=== PATIENT | female | born 1990 | race Caucasian/White ===

== ENCOUNTER 2019-07-10 22:59 | Emergency (ER) | payer MEDICARE, MEDICAID ==
[~2019-07-10] VITALS: Ht 170.2 cm; Wt 108.9 kg
[~2019-07-10 22:59] MED LIST: ACET-868 PO; BISM525O70 PO; DIVA500T2 PO; RISP3TAB5 PO; VENL75CA56 PO
--- NOTE | 2019-07-10 23:09 | NUR ---
CALLED PT TO BE TRIAGED, NO ANSWER
--- NOTE | 2019-07-10 23:18 | NUR ---
"BIBSELF C/O CHEST PAIN. -SOB, -N/V/D, -DIZZINESS PT ALSO C/O SI, -PLAN. DENIES HI" PT TO BED 12, PT ON MONITOR, VSS, NAD NOTED, S/I PRECAUTIONS FOR SAFETY, SITTER AT BEDSIDE, PENDING MD RIVERA
[2019-07-10] MEDS ORDERED: ASPIRIN 81 MG TAB.CHEW ONE (23:27)
[2019-07-10] MEDS ORDERED: ASPIRIN 81 MG TAB.CHEW PO ONE (23:30)
--- NOTE | 2019-07-10 23:36 | NUR ---
PT UNABLE TO GIVE URINE SAMPLE AT THIS TIME
[2019-07-10 23:41] LABS: BASOPHILS # (AUTO) 0.1 /CMM (0.0-0.2); BASOPHILS % (AUTO) 0.6 % (0.0-2.0); EOSINOPHILS % (AUTO) 0.2 % (0.0-6.0); HEMATOCRIT 41 % (33-45); HEMOGLOBIN 13.6 g/dL (11.5-14.8); LYMPHOCYTES # (AUTO) 1.6 /CMM (0.8-4.8); LYMPHOCYTES % (AUTO) 12.2 % (20.0-44.0); MEAN CORPUSCULAR HGB CONC 33 g/dl (31.0-36.0); MEAN CORPUSCULAR VOLUME 90 fL (82-100); MONOCYTES % (AUTO) 7.5 % (2.0-12.0); NEUTROPHILS # (AUTO) 10.5 /CMM (1.8-8.9); NEUTROPHILS % (AUTO) 79.5 % (43.0-81.0); PLATELET COUNT (AUTO) 292 /CMM (150-450); RED BLOOD CELL COUNT(AUTO) 4.53 MIL/uL (4.0-5.2); WHITE BLOOD COUNT (AUTO) 13.3 K/uL (4.3-11.0)
[2019-07-10 23:53] LABS: CALCIUM, SERUM 9.7 mg/dL (8.5-10.1); CARBON DIOXIDE 27 mmol/L (21-32); CHLORIDE 100 mmol/L (98-107); CREATININE 1.1 mg/dL (0.6-1.3); GLUCOSE 116 mg/dL (74-106); POTASSIUM 3.9 mmol/L (3.5-5.1); SODIUM SERUM 137 mmol/L (136-145); UREA NITROGEN, BLOOD 12 mg/dL (7-18)
[2019-07-10 23:54] LABS: ACETAMINOPHEN 0 ug/ml (10-30); ALCOHOL, BLOOD < 3 mg/dL (0-0); SALICYLATE < 0.2 mg/dL (2.8-20.0)
[2019-07-11 00:04] LABS: ALANINE AMINOTRANSFERASE 49 U/L (12-78); ALBUMIN 3.8 g/dL (3.4-5.0); ALKALINE PHOSPHATASE 81 U/L (46-116); ASPARTATE AMINOTRANSFERASE 39 U/L (15-37); B-TYPE NATRIURETIC PEPTIDE 142 PG/ML (0-125); BILIRUBIN,DIRECT 0.3 mg/dL (0.0-0.2); BILIRUBIN,TOTAL 1.2 mg/dL (0.2-1.0); TOTAL PROTEIN, SERUM 8.1 g/dL (6.4-8.2)
[2019-07-11 00:07] LABS: THYROID STIMULATING HORMONE 3.965 uIU/mL (0.358-3.74)
[2019-07-11] MEDS ORDERED: IV NS 0.9% 1,000 ML BAG IV ONE ×2 (00:30→03:00)
--- NOTE | 2019-07-11 02:50 | NUR ---
END TIME FOR NS 1 LITER: 0350 LAC 20G
[2019-07-11] MEDS ORDERED: DIVALPROEX SODIUM 500 MG TABLET.DR PO ONE ×2 (04:00→04:01)
--- NOTE | 2019-07-11 08:15 | NUR ---
Social service consult requested by Dr. Hoover for suicidal ideations. Pt. is a 29 year old female complaining of suicidal ideations with no plan. SOMMER met with the pt. bedside. Pt. is alert and oriented x 3. Pt. states she resides with her mother and doesn't get along with her at times. Pt. says she is suicidal but has no plan. Pt. has a history of Bipolar Schizoaffective DO. Pt. sees a in [place] for the past three years. Pt saw the psychiatrist this week. Patient has been in partial at [facility] and [facility] but does not remember the dates. Pt. has a history of "many" hospitalizations and suicide attempts. Pt. unable to remember her last psychiatric hospitalization but does remember it was at [facility]. Patient states she is compliant with her medications. SOMMER contacted pt's mother Jitendra, who informed SW that pt. ran away from home after getting into an argument with her and intentionally trying to run into traffic. SOMMER contacted plastic surgery manager Tarun and updated him aforementioned information. Tarun informed SOMMER he will come to [facility] to evaluate the pt. and place on a 4160 hold if deemed appropriate.
--- NOTE | 2019-07-11 08:16 | NUR ---
SPOKED TO ART BUSINESS BANKING RELATIONSHIP MANAGER STATED ANNETTE NOVOA SHOULD EVAL THE PT FIRST.
--- NOTE | 2019-07-11 08:21 | NUR ---
PROVIDED W/ FOOD TRAY.
--- NOTE | 2019-07-11 09:49 | NUR ---
ART TACK PULLER MACHINE AT BEDSIDE FOR EVAL.
--- NOTE | 2019-07-11 10:00 | NUR ---
ART HYDROELECTRIC POWERPLANT SUPERVISOR AT BEDSIDE FOR EVAL.
--- NOTE | 2019-07-11 10:32 | NUR ---
PT IS ACCEPTED IN [facility] BY DR. COLEMAN.
[2019-07-11 11:33] VITALS: BP 111/71
--- NOTE | 2019-07-11 11:40 | NUR ---
REPORT GIVEN TO MARGARETTE AGARWAL AT [facility]. AWAITING TRANSPORT AMBULANCE.
--- NOTE | 2019-07-11 11:40 | NUR ---
CALL FOR TRANSPORT ([facility]), ETA 1400
== END 2019-07-11 14:41 ==
LOC: ER 22:59
DX: R45.851 Suicidal ideations (principal); R07.89 Other chest pain; I10 Essential (primary) hypertension; M19.90 Unspecified osteoarthritis, unspecified site; Z79.899 Other long term (current) drug therapy
CPT/HCPCS: 36415 ×2; 71045; 80048; 80076; 80164; 80305; 80307; 80329; 83880; 84443; 84484 ×2; 84703; 85025; 85378; 93005; 99285; G0480; J7030

== ENCOUNTER 2019-10-07 03:36 | Emergency (ER) | payer MEDICARE, MEDICAID ==
[~2019-10-07] VITALS: Ht 154.9 cm; Wt 117.9 kg
--- NOTE | 2019-10-07 03:48 | NUR ---
Note undone in EDM - 10/07/19 at 0352 by DONALD BIBRA AND [employer] FROM HOME TO ER BED 12. AAOX4. NO RESP DISTRESS NOTED. AMBULATORY. BROUGHT IN FGOR SUICIDAL IDEATION. PT REPORTS THAT SHE WANT TO KILL HERSELF BY CUTTING HERSELF WITH A KNIFE. PER EMS REPORT, PT TRIED TO STRANGLE HERSELF WITH A TOWEL WHILE IN THE AMBULACE. PT DENIES ANY MEDICAL COMPLAINT. PT IS PLACED IN GOWN AND BELONGINGS FROM PT. MD WAS AT BEDSIDE FOR EVAL. ORDERS RECEIVED, NOTED AND CARRIED OUT.1:1 SITTER AT BEDSIDE.
--- NOTE | 2019-10-07 03:48 | NUR ---
BIB AND [employer] FROM HOME TO ER BED 12. AAOX4. NO RESP DISTRESS NOTED. AMBULATORY. BROUGHT IN FGOR SUICIDAL IDEATION. PT REPORTS THAT SHE WANT TO KILL HERSELF BY CUTTING HERSELF WITH A KNIFE. PER EMS REPORT, PT TRIED TO STRANGLE HERSELF WITH A TOWEL WHILE IN THE AMBULACE. PT DENIES ANY MEDICAL COMPLAINT. PT IS PLACED IN GOWN AND BELONGINGS FROM PT. PT DENIES HI. DENIES HALLUCINATIONS. MD WAS AT BEDSIDE FOR EVAL. ORDERS RECEIVED, NOTED AND CARRIED OUT.1:1 SITTER AT BEDSIDE.
[2019-10-07 04:00] LABS: BASOPHILS % (AUTO) 0.3 % (0.0-2.0); EOSINOPHILS % (AUTO) 1.1 % (0.0-6.0); HEMATOCRIT 40 % (33-45); HEMOGLOBIN 13.3 g/dL (11.5-14.8); LYMPHOCYTES # (AUTO) 2.5 /CMM (0.8-4.8); LYMPHOCYTES % (AUTO) 18.7 % (20.0-44.0); MEAN CORPUSCULAR HGB CONC 33 g/dl (31.0-36.0); MEAN CORPUSCULAR VOLUME 89 fL (82-100); MONOCYTES # (AUTO) 0.6 /CMM (0.1-1.30); MONOCYTES % (AUTO) 4.6 % (2.0-12.0); NEUTROPHILS # (AUTO) 9.9 /CMM (1.8-8.9); NEUTROPHILS % (AUTO) 75.3 % (43.0-81.0); PLATELET COUNT (AUTO) 318 /CMM (150-450); RED BLOOD CELL COUNT(AUTO) 4.52 MIL/uL (4.0-5.2); WHITE BLOOD COUNT (AUTO) 13.2 K/uL (4.3-11.0)
[2019-10-07 04:05] LABS: APPEARANCE,URINE Slightly Cloudy (CLEAR); BILIRUBIN,URINE Negative (NEGATIVE); BLOOD, URINE Small Ery/uL (NEGATIVE); COLOR,URINE Yellow (YELLOW); KETONES,URINE Negative (NEGATIVE); LEUKOCYTE ESTERASE ,URINE Trace (NEGATIVE); NITRITE, URINE Negative (NEGATIVE); PROTEIN,URINE Negative (NEGATIVE); UGLUCOSE Negative (NEGATIVE)
--- NOTE | 2019-10-07 04:12 | NUR ---
PT CLOTHINGS ARE PLACED IN THE LOCKER LOCATED IN THE UTILITY. PT WAS VISUALLY INSPECTED FOR CONTRABAND
[2019-10-07 04:13] LABS: CALCIUM, SERUM 9.8 mg/dL (8.5-10.1); CARBON DIOXIDE 26 mmol/L (21-32); CHLORIDE 104 mmol/L (98-107); CREATININE 0.9 mg/dL (0.6-1.3); GLUCOSE 104 mg/dL (74-106); POTASSIUM 3.5 mmol/L (3.5-5.1); SODIUM SERUM 140 mmol/L (136-145); UREA NITROGEN, BLOOD 12 mg/dL (7-18)
[2019-10-07 04:18] LABS: ALANINE AMINOTRANSFERASE 39 U/L (12-78); ALBUMIN 3.7 g/dL (3.4-5.0); ALCOHOL, BLOOD < 3 mg/dL (0-0); ALKALINE PHOSPHATASE 82 U/L (46-116); ASPARTATE AMINOTRANSFERASE 17 U/L (15-37); BILIRUBIN,DIRECT 0.2 mg/dL (0.0-0.2); BILIRUBIN,TOTAL 0.9 mg/dL (0.2-1.0); TOTAL PROTEIN, SERUM 7.7 g/dL (6.4-8.2)
[2019-10-07 04:19] LABS: ACETAMINOPHEN 0 ug/ml (10-30); SALICYLATE < 0.2 mg/dL (2.8-20.0)
[2019-10-07 04:27] LABS: BACTERIA,URINE Few /HPF (None Seen); RBC,URINE 21-50 /HPF (0-2); SQUAMOUS EPITHELIAL CELL,UR Moderate /HPF (None Seen); WBC,URINE 21-50 /HPF (0-3)
--- NOTE | 2019-10-07 05:30 | NUR ---
PT IN BED SLEEPING. NAD NOTED. SITTER AT BEDSIDE
--- NOTE | 2019-10-07 05:58 | NUR ---
PT LITHIUM RESULT IN. MEDICALLY CLEARED BY CLINICALS FAXED TO [facility] FOR VOLUNTARY INPATIENT
--- NOTE | 2019-10-07 06:00 | NUR ---
CALLED [facility] FOR BED AVAILABILITY. NO BEDS AVAILABLE AT TIMES. CLINICALS FAXED FOR REVIEW.
--- NOTE | 2019-10-07 06:07 | NUR ---
PT AMBULATED TO BATHROOM ON STEADY GAIT
[2019-10-07] MEDS ORDERED: ACETAMINOPHEN ES 500 MG TABLET ONE (06:20)
--- NOTE | 2019-10-07 06:24 | NUR ---
PT COMPLAINED OF HEADACHE. MD MADE AWARE. RECEIVED ORDER TO GIVE TYLENOL 1000MG. NOTED AND CARRIED OUT.
[2019-10-07] MEDS ORDERED: ACETAMINOPHEN ES 500 MG TABLET PO ONE (06:30)
--- NOTE | 2019-10-07 06:37 | NUR ---
PT ACCEPTED AT [facility] ([facility]). WILL CALL BACK FOR ACCEPTING MD AND BED.
--- NOTE | 2019-10-07 06:37 | NUR ---
Bere sousa in ED - 10/07/19 at 0640 by REYNOLD PT ACCEPTED AT REPLACED BY [facility] PER [facility] ([facility]). WILL CALL BACK FOR ACCEPTING MD AND BED.
--- NOTE | 2019-10-07 07:48 | NUR ---
PT ENDORSED TO ANY LOCO FOR RADHA
--- NOTE | 2019-10-07 07:50 | NUR ---
PATIENT RECEIVED SLEEPING IN GURNEY, EASILY AROUSABLE BY VOICE. HOOKED TO MONITOR, VSS. WILL CONTINUE TO MONITOR ACCORDINGLY, KEPT SAFE AND COMFORTABLE. 1:1 SITTER AT BEDSIDE
--- NOTE | 2019-10-07 09:21 | NUR ---
BREAKFAST TRAY PROVIDED. TOLERATING PO WELL.
--- NOTE | 2019-10-07 12:13 | NUR ---
SPOKE WITH RENNY,ACCEPTED BY DR BRANDT AND DR LOPEZ, REPORT TO [phone]
--- NOTE | 2019-10-07 12:15 | NUR ---
REPORT GIVEN TO SHELL AGARWAL FOR RADHA
--- NOTE | 2019-10-07 12:22 | NUR ---
[facility] FROM [facility] ETA 15 MINS TRIP NUMBER [id number]
[2019-10-07 13:10] VITALS: BP 124/69
[2019-10-07] MEDS ORDERED: IBUPROFEN 600 MG TABLET PO ONE ×2 (13:51→14:30)
--- NOTE | 2019-10-07 14:10 | NUR ---
PT TRANSPORTED TO [facility]. ALL BELONGINGS WITH PATIENT, VSS, NAD, PT LEFT IN STABLE CONDITION, PT LEFT VIA PRIVATE AMBULANCE
== END 2019-10-07 14:11 ==
LOC: ER 03:38
DX: R45.851 Suicidal ideations (principal); F31.9 Bipolar disorder, unspecified; I10 Essential (primary) hypertension; M54.9 Dorsalgia, unspecified; F25.9 Schizoaffective disorder, unspecified; Z79.899 Other long term (current) drug therapy
CPT/HCPCS: 36415; 80048; 80076; 80305; 80307; 80329; 81001; 84703; 85025; 87077; 87086; 87186; 99285; G0480; 81000-TC

== ENCOUNTER 2022-04-21 20:57 | Emergency (ER) | payer MEDICAID, MEDICARE, OTHER ==
[~2022-04-21] VITALS: Ht 170.2 cm; Wt 65.8 kg
--- NOTE | 2022-04-21 21:49 | NUR ---
Patient discharged to [facility] in [facility] custody in stable condition. Written and verbal after care instructions given. Patient verbalizes understanding of instruction.
[2022-04-21 21:50] VITALS: BP 135/90
== END 2022-04-22 00:58 ==
LOC: ER 21:05
DX: G89.29 Other chronic pain (principal); M54.50 Low back pain, unspecified; I10 Essential (primary) hypertension; M19.90 Unspecified osteoarthritis, unspecified site; F25.9 Schizoaffective disorder, unspecified; F31.9 Bipolar disorder, unspecified; Z79.899 Other long term (current) drug therapy